=== PATIENT | female | born 1955 | race Caucasian/White ===

== ENCOUNTER 2020-11-16 20:51 | Emergency (ER) | payer OTHER, MEDICARE ==
--- OUTSIDE RECORDS SUMMARY | 2020-11-16 20:55 | XMS REPORT | Continuity of Care Document ---
:1955 Author Organization [facility] t Address [address] [place] [address] Care Team Providers Name Role Phone MANJU SCHROEDER Primary Care Physician Unavailable Adan Cohen MD Attending Clinician Eliecer Sanches MD Attending Clinician ELIECER SANCHES Attending Clinician Unavailable JOSE ROSADO Attending Clinician Unavailable Veronika Sage NP Attending Clinician Alonzo CAVAZOS S Attending Clinician Veronika SAGE Attending Clinician Unavailable Venkatesh DIAZ Attending Clinician Unavailable PERRY Attending Clinician Unavailable Toby Amador Attending Clinician JUAN JOSÉ SANCHES Attending Clinician Unavailable OFELIA PEARL Attending Clinician Unavailable ALEXANDRE Attending Clinician Unavailable Jewel Attending Clinician JUAN JOSÉ SANCHES Admitting Clinician Unavailable ALEXANDRE Admitting Clinician Unavailable Payers Payer Name Policy Type Policy Effective Date Expiration Date Sour ce Number MEDICAREMEDICARE PART [id number] 2019 MD Duran Carranza AND 00:00:00 [id number] 2018- [phone] [id number] 2020 MD Garzon OF RETIRED 00:00:00 PERSONSAARP-SECONDARY [id number] 0-PresentMedigap Problems Condition Condition Condition Status Onset Resolution Last Treating Co mments Source Name Details Category Date Date Treatment Clinician Date Hyperglyce Hyperglyce Disease Active M D wilton wilton 8-21 [facility] 00:00: n 00 LT THUMB Diagnosis Active 2018-11-29 M emoria LIGAMENT 4-04 14:40:00 l LT THUMB 08:00: Umberto n LIGAMENT 00 Active 11/11/2018 [facility] [place] 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 's 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 's thumb ity of of left of left [place] hand, hand, Physici subsequent subsequent an s encounter encounter Allergies, Adverse Reactions, Alerts Allergy Allergy Status Severity Reaction(s) Onset Inactive Treating Comm ents Source Name Type Date Date Clinician codeine DA Active MO [facility] codeine DA Active U 2006-08 [facility] 09[facility] CODEINE DA Active U 2006-08 [facility] 09[facility]06 [facility] d [facility] No Known DA Active U 2006-08 [facility] Contrast 09-06 [place] Allergie 00:00: d s 00 [facility] Center No Known DA Active U 2006-08 [facility] Food 09-06 [facility] Allergie 00:00: d s 00 [facility] No Known DA Active U 2006-08 [facility] Other 09-06 [facility] Allergie 00:00: d s 00 [facility] codeine codeine Active Memoria l [facility] Codeine Drug Active Other (See GI Upset [facility] Comments) [facility] Family History Family Member Diagnosis Comments Start Date Stop Date Source Maternal grandfather -Endocrine (Thyroid, MD Garzon Pituitary, Adrenal) Maternal grandmother -Gynecology (Ovary, MD Garzon Endometrial, Cervix, Vagina) Natural mother -Brain cancer MD Torsten bynum Natural mother -Breast cancer Natural sister -Breast cancer Cousin -Breast cancer MD Uriel wilson Social History Social Habit Start Date Stop Date Quantity Comments Source Sex Assigned At [facility] Tobacco use and 2020-10-01 2020-10-01 Never used MD Altamirano on exposure 00:00:00 00:00:00 Alcohol intake 2020-10-01 2020-10-01 Current MD Uriel wilson 00:00:00 00:00:00 non-drinker of alcohol (finding) Smoking Status Start Date Stop Date Source Never smoker MD Garzon Medications Ordered Filled Start Stop Current Ordering Indication Dosage Frequency Signature Comments Components Source Medication Medication Date Date Medication? Clinician (SIG) Name Name atorvastati 2020- No 1{tbl} Take 1 M D n (LIPITOR) 10-01 tablet by An derso 20 mg 20:03: 00:00 mouth n tablet 19 :00 daily. rosuvastati 2019-08 Yes 1{tbl} Take 1 MD n (CRESTOR) 2-17 tablet by And erso 10 mg 00:00: mouth n tablet 00 daily. SYNTHROID Yes Hypothyroid TAKE 1 MD 100 mcg 6-30 ism, not TABLET BY And erso tablet 00:00: otherwise MOUTH n 00 specified EVERY DAY escitalopra Yes Mood 10mg Take 1 MD m (LEXAPRO) 6-30 disorder, tablet (10 Anderso 10 mg 00:00: not mg) by n tablet 00 otherwise mouth specified daily. escitalopra 2019- No 1{tbl} Take 1 M D m (LEXAPRO) 1-27 06-30 tablet by An derso 10 mg 00:00: 00:00 mouth n tablet 00 :00 daily. SYNTHROID 2019- No TAKE 1 MD 100 mcg 2-20 06-30 TABLET BY Adarsh o tablet 00:00: 00:00 MOUTH n 00 :00 EVERY DAY levothyroxi Yes 100ug Take [address] [facility] 9-05 mcg by [facility] - (SYNTHROID, 12:31: mouth Medic al LEVOTHROID) 10 Every Center 100 MCG morning on tablet an empty stomach. atorvastati Yes 20mg QD Take [address] [facility] (LIPITOR) 905 by mouth Luke s - 20 MG 12:31: every Medical tablet 10 morning . Center TRASTUZUMAB Yes Inject [facility] (HERCEPTIN 04-14 intravenou [facility] - IV) 12:31: sly once Medical 10 every 3 Center weeks. Naloxone No Notes: Memoria - Same as l 14:29: Narcan [facility]vin 00 Flumazenil No Notes: Memor ia 17 (Same as: l 14:29: Romazicon) 00 Lidocaine No Notes: Memori a Hydrochlori 04-26 (Same as: l de 10 MG/ML 14:00: Xylocaine) [place] Injectable 00 Solution Levothyroxi Yes 75 Memori a ne Sodium - microgram l 0.075 MG 13:34: = 1 tab, Heide nn Oral Tablet 00 PO, Daily, [Synthroid] # 30 tab, 0 Refill(s) Sodium No 1,000 mL, Memori a Chloride 04-26 Rate: 25 l 0.154 13:33: ml/hr, [facility]vin MEQ/ML 00 Infuse Injectable over: 40 Solution hr, Route: IV, Dosing Weight 61.364 kg, Total Volume: 1,000, Start date: 04/26/14 8:33:00, Duration: 30 day, Stop date: 05/26/14 8:32:00 Synthroid Synthroid Yes Unive rs TABS TABS [facility] [place] [facility] Lipitor Lipitor Yes [facility] TABS TABS [facility] [place] [facility] Immunizations Ordered Immunization Filled Immunization Date Status Commen ts Source Name Name Influenza, 2017-04-10 Completed MD Garzon Unspecified 00:00:00 Influenza, 2014-06-06 Completed MD Garzon Unspecified 00:00:00 Tdap 2004-08-10 Completed MD Garzon 00:00:00 Vital Signs Vital Name Observation Time Observation Value Comments Source WEIGHT 2020-10-01 12:52:00 64.7 kg WEIGHT 2020-10-01 12:52:00 64.7 kg WEIGHT 2020-03-30 10:13:00 61.1 kg WEIGHT 2020-03-30 10:13:00 61.1 kg Systolic blood 2020-10-01 18:55:30 141 mm[Hg] pressure Diastolic blood 2020-10-01 18:55:30 87 mm[Hg] MD Marbella alcantarason pressure Heart rate 2020-10-01 18:55:30 62 /min MD Michael kennedy Body temperature 2020-10-01 18:55:30 36.61 Tiffany MD Tere luciorson Respiratory rate 2020-10-01 18:55:30 18 /min MD Tere lizarraga Oxygen saturation in 2020-10-01 18:55:30 98 /min MD Garzon Arterial blood by Pulse oximetry Body weight 2020-10-01 18:52:00 64.7 kg MD Rodriguez son BMI 2020-10-01 18:52:00 24.65 kg/m2 MD Michael kennedy Systolic (mm Hg) 2014-04-26 13:38:00 Fili Charles Diastolic (mm Hg) 2014-04-26 13:38:00 Mem orial [place] Respitory Rate 2014-04-26 13:38:00 Smitha Shrestha BMI Calculated 2014-04-25 16:06:00 Smitha Shrestha Height 2014-04-25 16:06:00 [facility] 2014-04-25 16:06:00 [facility] Procedures Procedure Date / Time Performing Clinician Source Performed COMPLETE BLOOD COUNT W/ 2020-10-01 17:45:00 Jose Rosado MD nderson DIFFERENTIAL COMPREHENSIVE METABOLIC 2020-10-01 17:45:00 Jose Rosado MD nderavindraon PANEL Results CBC 2020-10-01 17:45:00 Jose Rosado MD MANUAL DIFFERENTIAL 2020-10-01 17:45:00 Jose Rosado MD [facility] GLUCOSE LEVEL 2020-10-01 17:45:00 Jose Rosado MD BLOOD UREA NITROGEN 2020-10-01 17:45:00 Jose Rosado MD [facility] ELECTROLYTE PANEL 2020-10-01 17:45:00 [facility] CREATININE 2020-10-01 17:45:00 Jose Rosado MD .GLOMERULAR FILTRATION 2020-10-01 17:45:00 Jose Rosado MDson RATE CALCIUM LEVEL TOTAL 2020-10-01 17:45:00 Jose Rosado MD [facility] ALBUMIN LEVEL 2020-10-01 17:45:00 Jose Rosado MD ALKALINE PHOSPHATASE 2020-10-01 17:45:00 Jose Rosado MD Torsten rson ALANINE AMINOTRANSFERASE 2020-10-01 17:45:00 Jose Rosado MD ASPARTATE AMINOTRANSFERASE 2020-10-01 17:45:00 Jose Rosado TOTAL PROTEIN 2020-10-01 17:45:00 Jose Rosado MD FRACTIONATED BILIRUBIN 2020-10-01 17:45:00 Jose Rosado MD COMPLETE BLOOD COUNT W/ 2020-03-30 14:11:00 Eliecer Sanches MDon DIFFERENTIAL COMPREHENSIVE METABOLIC 2020-03-30 14:11:00 Eliecer Sanches MDon PANEL LACTATE DEHYDROGENASE 2020-03-30 14:11:00 Eliecer Sanches MD And erson MAGNESIUM LEVEL 2020-03-30 14:11:00 Eliecer Sanches MD PHOSPHORUS LEVEL 2020-03-30 14:11:00 Eliecer Sanches MD URIC ACID 2020-03-30 14:11:00 Eliecer Sanches MD Results CBC 2020-03-30 14:11:00 Eliecer Sanches MD MANUAL DIFFERENTIAL 2020-03-30 14:11:00 Eliecer Sanches MD Michael kennedy GLUCOSE LEVEL 2020-03-30 14:11:00 Eliecer Sanches MD BLOOD UREA NITROGEN 2020-03-30 14:11:00 Eliecer Sanches MD Michael kennedy ELECTROLYTE PANEL 2020-03-30 14:11:00 Eliecer Sanches MD Uriel n SERUM CREATININE 2020-03-30 14:11:00 Eliecer Sanches MD .GLOMERULAR FILTRATION 2020-03-30 14:11:00 Eliecer Sanches MD RATE CALCIUM LEVEL TOTAL 2020-03-30 14:11:00 Eliecer Sanches MD Michael kennedy ALBUMIN LEVEL 2020-03-30 14:11:00 Eliecer Sanches MD ALKALINE PHOSPHATASE 2020-03-30 14:11:00 Eliecer Sanches MD Torsten rson ALANINE AMINOTRANSFERASE 2020-03-30 14:11:00 Eliecer Sanches MD ASPARTATE AMINOTRANSFERASE 2020-03-30 14:11:00 Eliecer Sanches TOTAL PROTEIN 2020-03-30 14:11:00 Eliecer Sanches MD FRACTIONATED BILIRUBIN 2020-03-30 14:11:00 Eliecer Sanches MD Post Op Promis 29 Survey 2018-11-12 00:00:00 [facility] Hand wo contrast [id number] 2018-07-20 00:00:00 Un iversity [facility] History of [facility] [place] [facility] History of Wrist Surgery Univers ity [facility] History of Mastectomy [facility] Physicians Plan of Care Planned Activity Planned Date Details Comments Source Future Scheduled 2020-04-10 INFLUENZA VACCINE (#1) [facility] - Test 00:00:00 [code = INFLUENZA Medical Ce nter VACCINE (#1)] Future Scheduled 2019 PNEUMOCOCCAL 65+ YRS [facility] - Test 00:00:00 (1 of 1 - Medical Center [id number] PCV13) [code = PNEUMOCOCCAL 65+ YRS (1 of 1 - [id number] PCV13)] Future Scheduled [address] [facility] - Test 00:00:00 (procedure) [code = Medical Center 62927173] Future Scheduled [address] [facility] - Test 00:00:00 malignant neoplasm of Medica l Center cervix (procedure) [code = 483673613] Future Scheduled [address] [facility] - Test 00:00:00 malignant neoplasm of [facility] breast (procedure) [code = 422958048] Future Scheduled [address] [facility] - Test 00:00:00 malignant neoplasm of [facility] colon (procedure) [code = 651190074] Encounters Start End Encounter Admission Attending Care Care Encounter Source Date/Time Date/Time Type Type Clinicians Facility Department ID 2020-10-01 2020-10-01 Outpatient JAIME SANCHES NITA MDA [id number] 11:48:24 13:40:27 ELIECER wilson 2020-10-01 2020-10-01 Outpatient JAIME ROSADO NITA MDA [id number] 11:39:58 11:42:38 JOSE wilson 2020-03-30 2020-03-30 Outpatient JAIME SAGE NITA MDA [id number] 10:12:09 11:00:16 ERICA wilson 2020-03-30 2020-03-30 Outpatient JAIME SANCHESNITA MDA [id number] 08:49:34 09:07:24 ELIECER wilson 2019-01-05 2019-01-05 Appointmen BRIEN AMADOR UTP [id number] Univers 11:10:00 11:10:00 t; LUIS MIGUEL AMADOR Orthopedic Raine M.D. Surgery Radha Titus [facility] [place] [facility] 2018-11-29 2018-12-28 Outpatient Perry [id number] 13:00:00 23:59:00 Luis Miguel [id number] Toby [id number] 2018-11-19 2018-11-19 Appointmen BRIEN AMADOR UTP [id number] Univers 09:30:00 09:30:00 t; LUIS MIGUEL AMADOR Orthopedic Raine M.D. Surgery - Radha Titus [facility] [place] [facility] 2018-11-04 2018-11-04 Appointmen BRIEN AMADOR UTP [id number] Univers 08:00:00 08:00:00 t; LUIS MIGUEL AMADOR it y of MATTHEW, M.D. [place] M.D. Physici ans 2018-10-22 2018-10-22 Appointmen PERRY, BRIEN UTP [id number] Univers 09:00:00 09:00:00 t; LUIS MIGUEL AMADOR, Orthopedic itCaitie M.D. Surgery - [facility] [place] [facility] [place] [facility] 2018-08-27 2018-08-27 Appointmen BRIEN AMADOR UTP [id number] Univers 09:30:00 09:30:00 t; LUIS MIGUEL AMADOR Orthopedic itCaitie M.D. Surgery - [facility] [place] [facility] [place] [facility] 2018-07-30 2018-07-30 Appointmen BRIEN AMADOR UTP [id number] Univers 08:45:00 08:45:00 t; LUIS MIGUEL AMADOR it y of [place], M.D. [facility] [place] [facility] 2018-07-20 2018-07-20 Appointmen BRIEN AMADOR UTP [id number] Univers 09:50:00 09:50:00 t; LUIS MIGUEL AMADOR it y of [place], M.D. [facility] [place] [facility] ans 2014-04-26 2014-04-26 Outpatient [facility] [id number] 08:14:00 11:20:00 Udayini 00 Results Test Description Test Time Test Comments Results Result [facility] e Comments - XR 2020-04-30 FAX: SACRUM/COCCYX 2 + 07:49:00 Renetta Fernández MD V [phone] [place]: St: DEP Name: JULIANA BLACKWOOD CECILKARISSAAlbina [facility] : 1955 Age/S: 64/F [address] Unit #: [id number] Loc: [place] [address] Phys: Renetta Fernández MD Acct: [id number] Dis Date: Status: DEP ER PHONE #: [phone] Exam Date: 04/14/20201448 FAX #: [phone] Reason: fall Report Has Been Amended EXAMS: CPT CODE: [id number] XR SACRUM/COCCYX 2 + V 17599 Addendum - 04/30/2020 SIGNED 04/30/2020 ADDENDUM: [id number] [email or web address]/[id number] Addendum: HISTORY: Fall, pain at 0797 Reported and signed by: Kam Boswell MD Transcribed: 04/30/2020 (8124) [email or web address] Report EXAM: - XR SACRUM/COCCYX 2 + V HISTORY: fall COMPARISON: None available time of interpretation. FINDINGS: Frontal, oblique, and lateral views of the sacrum and coccyx are provided. No acute fracture or malalignment. The sacroiliac joints demonstrate tiny osteophytes at the anterior inferior aspects. No incidental soft tissue findings. IMPRESSION: No acute fracture. at 1518 Reported and signed by: Kam Boswell MD CC: Renetta Fernández MD Technologist: Adelita Estes Date/Time/By: 04/14/2020 (2778) : By: [email or web address] PAGE 1 Signed Report FAX: Renetta Fernández MD [phone] [place]: St: DEP Name: JULIANA BLACKWOOD [facility] : 1955 Age/S: 64/F [address] Unit #: [id number] Loc: [place] [address] Phys: Renetta Fernández MD Acct: [id number] Dis Date: Status: DEP ER PHONE #: [phone] Exam Date: 04/14/2020 1449 FAX #: [phone] Reason: fall Report Has Been Amended EXAMS: CPT CODE: [id number] XR SACRUM/COCCYX 2 + V 25081 <Continued> Orig Print D/T: S: 04/14/2020 (1528) PAGE 2 Signed Report - XR CHEST 1 V 2020-04-30 FAX: 07:48:00 Renetta Fernández MD [phone] [place]: St: DEP Name: JULIANA BLACKWOOD [facility] : 1955 Age/S: 64/F [address] Unit #: [id number] Loc: [place] [address] Phys: Renetta Fernández MD Acct: [id number] Dis Date: Status: DEP ER PHONE #: [phone] Exam Date: 04/14/2020 1445 FAX #: [phone] Reason: fall Report Has Been Amended EXAMS: CPT CODE: [id number] XR CHEST 1 V 68725 Addendum - 04/30/2020 SIGNED 04/30/2020 ADDENDUM: [id number] RAD/CXR1 Addendum: HISTORY: Fall, pain at 0771 Reported and signed by: Kam Boswell MD Transcribed: 04/30/2020 (1673) [email or web address] Report EXAM: - XR CHEST 1 V LOCATION: C3 HISTORY: fall COMPARISON: None available time of interpretation. FINDINGS: Single view of the chest. No indwelling lines or tubes. No pneumothorax. The lungs are clear without significant effusions. The mediastinal contours are unremarkable/unchanged . No acute osseous findings are present. IMPRESSION: No acute cardiopulmonary abnormality. at 7853 Reported and signed by: Kam Boswell MD PAGE 1 Signed Report (CONTINUED) FAX: Renetta Fernández MD [phone] [facility] [place]: St: DEP Name: SATISHJULIANA PRANAYAlbina [facility] : 1955 Age/S: 64/F [address] Unit #: [id number] Loc: [place] [address] Phys: Renetta Fernández MD Acct: [id number] Dis Date: Status: [facility] ER PHONE #: [phone] Exam Date: 04/14/2020 1449 FAX #: [phone] Reason: fall Report Has Been Amended EXAMS: CPT CODE: [id number] XR CHEST 1 V 39876 <Continued> CC: Renetta Fernández MD Technologist: Adelita Estes Date/Time/By: 04/14/2020 (1506) : By: [email or web address] PAGE 2 Signed Report FAX: Renetta Fernández MD [phone] [facility] [place]: [facility]: DEP Name: JULIANA BLACKWOOD [facility] : 1955 Age/S: 64/F [address] Unit #: [id number] Loc: [place] [address] Phys: Renetta Fernández MD Acct: [id number] Dis Date: Status: [facility] ER PHONE #: [phone] Exam Date: 04/14/2020 1449 FAX #: [phone] Reason: fall Report Has Been Amended EXAMS: CPT CODE: [id number] XR CHEST 1 V 77949 <Continued> Orig Print D/T: S: 04/14/2020 (3012) PAGE 3 Signed Report - XR 2020-04-14 FAX: SACRUM/COCCYX 2 + 15:18:00 Renetta Fernández MD V [phone] [place]: St: REG Name: JULIANA BLACKWOOD [facility] : 1955 Age/S: 64/F [address] Unit #: [id number] Loc: [place] [address] Phys: Renetta Fernández MD Acct: [id number] Dis Date: Status: REG ER PHONE #: [phone] Exam Date: 04/14/2020 1449 FAX #: [phone] Reason: fall EXAMS: CPT CODE: [id number] XR SACRUM/COCCYX 2 + V 29232 EXAM: - XR SACRUM/COCCYX 2 + V HISTORY: fall COMPARISON: None available time of interpretation. FINDINGS: Frontal, oblique, and lateral views of the sacrum and coccyx are provided. No acute fracture or malalignment. The sacroiliac joints demonstrate tiny osteophytes at the anterior inferior aspects. No incidental soft tissue findings. IMPRESSION: No acute fracture. at 1518 Reported and signed by: Kam Boswell MD CC: Renetta Fernández MD Technologist: Adelita Estes Date/Time/By: 04/14/2020 (0632) : By: [email or web address] PAGE 1 Signed Report FAX: Renetta Fernández MD [phone] [facility] [place]: St: REG Name: JULIANA BLACKWOOD [facility] : 1955 Age/S: 64/F [address] Unit #: [id number] Loc: [place] [address] Phys: Renetta Fernández MD Acct: [id number] Dis Date: Status: REG ER PHONE #: [phone] Exam Date: 04/14/2020 1449 FAX #: [phone] Reason: fall EXAMS: CPT CODE: [id number] XR SACRUM/COCCYX 2 + V 28218 <Continued> Orig Print D/T: S: 04/14/2020 (0827) PAGE 2 Signed Report - XR CHEST 1 V 2020-04-14 FAX: 15:06:00 Renetta Fernández MD [phone] [facility]: St: REG Name: JULIANA BLACKWOOD [facility] : 1955 Age/S: 64/F [address] Unit #: [id number] Loc: [place] [address] Phys: Renetta Fernández MD Acct: [id number] Dis Date: Status: REG ER PHONE #: [phone] Exam Date: 04/14/2020 144 FAX #: [phone] Reason: fall EXAMS: CPT CODE: [id number] XR CHEST 1 V 83023 EXAM: - XR CHEST 1 V LOCATION: C3 HISTORY: fall COMPARISON: None available time of interpretation. FINDINGS: Single view of the chest. No indwelling lines or tubes. No pneumothorax. The lungs are clear without significant effusions. The mediastinal contours are unremarkable/unchanged . No acute osseous findings are present. IMPRESSION: No acute cardiopulmonary abnormality. at 150 Reported and signed by: Kam Boswell MD CC: Renetta Fernández MD Technologist: Adelita Estes Date/Time/By: 04/14/2020 (1488) : By: [email or web address] PAGE 1 Signed Report FAX: Renetta Fernández MD [phone] [facility] [place]: St: REG Name: JULIANA BLACKWOOD [facility] : 1955 Age/S: 64/F [address] Unit #: [id number] Loc: [place] [address] Phys: Renetta Fernández MD Acct: [id number] Dis Date: Status: REG ER PHONE #: [phone] Exam Date: 04/14/2020 1449 FAX #: [phone] Reason: fall EXAMS: CPT CODE: [id number] XR CHEST 1 V 17850 <Continued> Orig Print D/T: S: 04/14/2020 (0194) PAGE 2 Signed Report - CT C-SPINE W/O 2020-04-14 FAX: CONT 14:27:00 Renetta Fernández MD [phone] [facility] [place]: St: REG Name: JULIANA BLACKWOOD [facility] : 1955 Age/S: 64/F [address] Unit: [id number] Loc: [place] [address] Phys: Renetta Fernández MD Acct: [id number] Dis Date: Status: REG ER PHONE #: [phone] Exam Date: 04/14/2020 1410 FAX #: [phone] Reason: fall EXAMS: CPT CODE: [id number] CT C-SPINE W/O CONT 494[address] Location B2 NON-CONTRAST CT BRAIN NONCONTRAST CT CERVICAL SPINE History: Fall. Trauma COMPARISON: None available TECHNIQUE : Serial axial CT of the brain obtained without the use of intravenous contrast in brain and bone window settings. Axial CT of the cervical spine provided in soft tissue and bone windows with coronal and sagittal reconstruction. One or more of the following dose reduction techniques were used: Automated exposure control, adjustment of the mA or KV according to patient size, use of Iterative reconstruction technique. DLP 1332.82 mGy-cm FINDINGS: Brain: There is no evidence of acute cerebrovascular injury, mass effect or midline shift. No evidence of subarachnoid hemorrhage, intracerebral hematoma, or extraaxial fluid collections. Osseous structures are unremarkable. The orbits appear normal. The visible paranasal sinuses and mastoid air spaces are clear. T-spine: Alignment is normal. Vertebral body height is maintained. Mild disc space narrowing with small anterior osteophytes throughout the C-spine. Mild uncovertebral spurring at C4-C5 results in mild foraminal encroachments. There are bony hypertrophic changes along the anterior C1 around the dens. The craniocervical junction and cervicothoracic junctions are intact. The prevertebral soft tissues show no focal abnormality. IMPRESSION: 1. No evidence of acute intracranial process. 2. No evidence of acute fracture or subluxation, C-spine. Mild chronic degenerative changes. PAGE 1 Signed Report (CONTINUED) FAX: Renetta Fernández MD [phone] [facility] [place]: St: REG Name: JULIANA BLACKWOOD [facility] : 1955 Age/S: 64/F [address] Unit: [id number] Loc: [place] [address] Phys: Renetta Fernández MD Acct: [id number] Dis Date: Status: REG ER PHONE #: [phone] Exam Date: 04/14/2020 1410 FAX #: [phone] Reason: fall EXAMS: CPT CODE: [id number] CT C-SPINE W/O CONT 41868 <Continued> at 1427 Reported and signed by: Gail Bone MD CC: Renetta Fernández MD Technologist: Lela Lenz Dt/Tm: 04/14/2020 (1427) [email or web address] Orig Print D/T: S: 04/14/2020 (1430 PAGE 2 Signed Report - CT HEAD/BRAIN 2020-04-14 FAX: W/O CONT 14:27:00 Renetta Fernández MD [phone] [place]: St: REG Name: JULIANA BLACKWOOD [facility] [facility] : 1955 Age/S: 64/F [address] Unit: [id number] Loc: [place] [address] Phys: Renetta Fernández MD Acct: [id number] Dis Date: Status: REG ER PHONE #: [phone] Exam Date: 04/14/2020 1410 FAX #: [phone] Reason: fall EXAMS: CPT CODE: [id number] CT HEAD/BRAIN W/O CONT 71974 Location B2 NON-CONTRAST CT BRAIN NONCONTRAST CT CERVICAL SPINE History: Fall. Trauma COMPARISON: None available TECHNIQUE : Serial axial CT of the brain obtained without the use of intravenous contrast in brain and bone window settings. Axial CT of the cervical spine provided in soft tissue and bone windows with coronal and sagittal reconstruction. One or more of the following dose reduction techniques were used: Automated exposure control, adjustment of the mA or KV according to patient size, use of Iterative reconstruction technique. DLP 1332.82 mGy-cm FINDINGS: Brain: There is no evidence of acute cerebrovascular injury, mass effect or midline shift. No evidence of subarachnoid hemorrhage, intracerebral hematoma, or extraaxial fluid collections. Osseous structures are unremarkable. The orbits appear normal. The visible paranasal sinuses and mastoid air spaces are clear. T-spine: Alignment is normal. Vertebral body height is maintained. Mild disc space narrowing with small anterior osteophytes throughout the C-spine. Mild uncovertebral spurring at C4-C5 results in mild foraminal encroachments. There are bony hypertrophic changes along the anterior C1 around the dens. The craniocervical junction and cervicothoracic junctions are intact. The prevertebral soft tissues show no focal abnormality. IMPRESSION: 1. No evidence of acute intracranial process. 2. No evidence of acute fracture or subluxation, C-spine. Mild chronic degenerative changes. PAGE 1 Signed Report (CONTINUED) FAX: Renetta Fernández MD [phone] [place]: St: REG Name: JULIANA [facility]OD [facility] : 1955 Age/S: 64/F [address] Unit: [id number] Loc: [place] [address] Phys: Renetta Fernández MD Acct: [id number] Dis Date: Status: REG ER PHONE #: [phone] Exam Date: 04/14/2020 1410 FAX #: [phone] Reason: fall EXAMS: CPT CODE: [id number] CT HEAD/BRAIN W/O CONT [id number] <Continued> at 1427 Reported and signed by: Gail Bone MD CC: Renetta Fernández MD Technologist: Lela Hernandez Trnscrd Dt/Tm: 04/14/2020 (4347) [email or web address] Orig Print D/T: S: 04/14/2020 (7450 PAGE 2 Signed Report MM, U/S GUIDANCE, 2019-01-26 Reason for MRN#: BREAST, LEFT 13:28:00 Exam:->LT BREAST [id number] - MASS MM, U/S GUIDANCE, BREAST, LEFTASPIRATION: 01/26/2019CLINICAL: Cyst aspiration of the left breast. PATIENT CONSENT: The procedure, risks, benefits and alternatives were discussed with the patient. Informed consent was obtained. A time-out was performed. PROCEDURE DESCRIPTION: Following universal protocol, patient and site verification was performed with a "time out" prior to the procedure. Preliminary ultrasound of the left breast with special attention to the area of sonographic concern, confirms the presence of a 3 mm cyst at the 2 o'clock location, 10 cm from the nipple. Informed consent was obtained. The patient was positioned in the supine oblique position. The skin was cleansed, and the surgical site was marked. 2% Lidocaine was used for local anesthesia. Using sonographic guidance, an 16 gauge needle was advanced into the mass and less than 1 cc of clear yellow fluid was aspirated from the cyst which collapsed during aspiration. Fluid was discarded. Post aspiration images document resolution of the cyst. The patient tolerated the procedure well and left the department in good condition. I attest that I personally performed the entire procedure and reviewed all of the images. Comparison is made to exam dated: 01/11/2019 ultrasound - [facility]. IMPRESSION: ASPIRATION Successful left breast cyst aspiration. An ultrasound within 6 months is recommended as post biopsy follow-up. These findings and recommendations were discussed with the patient. Kristy Cancino M.D. as/:01/26/2019 13:28:33 Finished Carpet Inspector: Annabelle Guerrero [facility] [address] , BREAST, 2019-01-11 Diagnostic MRN#: AXILLA, AUNG 09:23:00 workup per [id number] - BASIN, LIMITED radiologist?->Ye MMUS, BREAST, AXILLA, s Reason for AUNG BASIN, Exam:->Unspecifi LIMITEDULTRASOUND OF ed lump in the LEFT BREAST AND LEFT left breast, AXILLA: 01/11/2019No upper outer prior ultrasound exams quadrant were available for comparison. Clinical History: History of right breast cancer; status post bilateral mastectomy with reconstruction; presents with a new left palpable concern for 2 months. Color flow and real-time ultrasound of the left breast and axilla were performed. There is a 3 mm oval mass with a circumscribed margin in the left reconstructed breast at 2 o'clock approximately 10 cm from the nipple. This oval mass is anechoic. This correlates as palpated. Color flow imaging demonstrates that there is no vascularity present. There are no abnormal appearing axilla lymph nodes. IMPRESSION: SUSPICIOUS OF MALIGNANCY - FOLLOW-UP RECOMMENDED The 3 mm palpable oval mass in the left reconstructed breast likely represents fat necrosis and is at a low suspicion for malignancy. An FNA with possible core biopsy is recommended. These findings and recommendations were discussed with the patient.Kristy Cancino M.D. as/:01/11/2019 09:23:33 Biopsy Required BiRad 4-5 Ultrasound BI-RADS: 4a Suspicious abnormality - low suspicion for malignancy ÉN, REMOVAL OF 2018-04-14 Reason for FINAL REPORT PATIENT TUNNELED CVC 14:12:00 Exam:->RIGHT ID: [id number] Right W/PORT BREAST CA Chest Port-A-Cath removal. History: Right-sided breast cancer, completed chemotherapy Modality: None. Sedation: None. Fast Food Sales Assistant: Wesley Perry MD. Environmental Advisor: None. Approach: Left anterior chest. Estimated blood loss: < 5 cc. Specimen: None. Technique: The procedure including risks and benefits were explained to the patient, who expressed understanding. After informed written consent was obtained, the patient's Left anterior chest region was prepped and draped in the usual sterile fashion. The skin was anesthetized with 1% lidocaine with epinephrine. Incision was made over the previous incision line. The port was removed with blunt dissection. The pocket was flushed with gentamicin. The skin was closed with running Monocryl and Dermabond. The patient tolerated the procedure well and left the department in the same condition. Postprocedure chest radiograph demonstrates no retained foreign body. Impression: Successful, uncomplicated removal of a Left Port-A-Cath. Signed: Wesley Perry MDReport Verified Date/Time: 04/14/2018 14:12:26 Reading Location: [facility] Radiology Reading Room HROMBIN TIME/INR 2018-04-14 11:33:00 Test Item Value Reference Range Interpretation Comme nts PROTIME (BEAKER) (test code = 759) 13.1 seconds 11.8-14.4 INR (BEAKER) (test code = 370) 0.9 1.2-1.5 L RECOMMENDED COUMADIN/WARFARIN INR THERAPY RANGESSTANDARD DOSE: 2.0 - 3.0 Includes: PROPHYLAXIS forvenous thrombosis, systemic embolization; TREATMENT for venous thrombosis and/or pulmonary embolus.HIGH RISK: Target INR is 2.5-3.5 for patients with mechanical heart valves.PLATELET [id number] 11:29:00 Test Item Value Reference Range Interpretation Comments PLATELET COUNT (BEAKER) (test 246 K/CU MM 150-430 code = 756) BASIC METABOLIC [id number] 11:54:00 Test Item Value Reference Range Interpretation Comments SODIUM (BEAKER) 141 meq/L 135-148 (test code = 381) POTASSIUM (BEAKER) 4.5 meq/L 3.5-5.5 (test code = 379) CHLORIDE (BEAKER) 105 meq/L 98-106 (test code = 382) CO2 (BEAKER) (test 29 meq/L 20-31 code = 355) BLOOD UREA NITROGEN 18 mg/dL 10-26 (BEAKER) (test code = 354) CREATININE (BEAKER) 0.83 mg/dL 0.50-1.20 (test code = 358) GLUCOSE RANDOM 95 mg/dL 70-110 (BEAKER) (test code = 652) CALCIUM (BEAKER) 9.2 mg/dL 8.5-10.5 (test code = 697) EGFR (BEAKER) (test 69 mL/min/1.73 ESTIMA ANDREA GFR IS code = 1092) sq m NOT ACCURATE CREATININE CLEARANCE IN PREDICTING GLOMERULAR FILTRATION RATE . ESTIMATED GFR I S NOT APPLICABLE FOR DIALYSIS PATIEN TS. CBC W/PLT COUNT & AUTO [id number] 11:28:00 Test Item Value Reference Range Interpretation Comments WHITE BLOOD CELL COUNT (BEAKER) 6.0 K/ L 4.0-10.0 (test code = 775) RED BLOOD CELL COUNT (BEAKER) 4.10 M/ L 4.00-5.00 (test code = 761) HEMOGLOBIN (BEAKER) (test code = 11.6 GM/DL 12.0-15.0 L 410) HEMATOCRIT (BEAKER) (test code = 35.5 % 36.0-45.0 L 411) MEAN CORPUSCULAR VOLUME (BEAKER) 86.5 fL 82.0-99.0 (test code = 753) MEAN CORPUSCULAR HEMOGLOBIN 28.3 pg 27.0-33.0 (BEAKER) (test code = 751) MEAN CORPUSCULAR HEMOGLOBIN CONC 32.7 GM/DL 32.0-36.0 (BEAKER) (test code = 752) RED CELL DISTRIBUTION WIDTH 14.7 % 12.0-15.0 (BEAKER) (test code = 412) PLATELET COUNT (BEAKER) (test 273 K/CU MM 150-430 code = 756) MEAN PLATELET VOLUME (BEAKER) 7.9 fL 6.5-10.5 (test code = 754) NUCLEATED RED BLOOD CELLS 0 /100 WBC 0-0 (BEAKER) (test code = 413) NEUTROPHILS RELATIVE PERCENT 45 % (BEAKER) (test code = 429) LYMPHOCYTES RELATIVE PERCENT 44 % (BEAKER) (test code = 430) MONOCYTES RELATIVE PERCENT 9 % (BEAKER) (test code = 431) EOSINOPHILS RELATIVE PERCENT 2 % (BEAKER) (test code = 432) BASOPHILS RELATIVE PERCENT 1 % (BEAKER) (test code = 437) NEUTROPHILS ABSOLUTE COUNT 2.70 K/ L 1.80-8.00 (BEAKER) (test code = 670) LYMPHOCYTES ABSOLUTE COUNT 2.70 K/ L 1.48-4.50 (BEAKER) (test code = 414) MONOCYTES ABSOLUTE COUNT (BEAKER) 0.50 K/ L 0.00-1.30 (test code = 415) EOSINOPHILS ABSOLUTE COUNT 0.10 K/ L 0.00-0.50 (BEAKER) (test code = 416) BASOPHILS ABSOLUTE COUNT (BEAKER) 0.00 K/ L 0.00-0.20 (test code = 417) ANG, TUNNEL CATH CENTRAL INS W/PORT [id number] 09:20:00Reason for Exam:->rt breast caFINAL REPORT Left internal jugular chest port insertion, 05/04/2017. History: Right breast cancer. Modality: Sonography and fluoroscopy. Sedation: Versed 1 mg and fentanyl 50 mcg given intravenously for conscious sedation. Vital signs were monitored throughout the procedure by a nurse, and remained stable.Physician intra-service time was 30 minutes. Fast Food Sales Assistant: Jackie. Environmental Advisor: None. Approach: Left internal jugular vein Estimated blood loss: < 5 cc. Specimen: None. Fluoroscopy Time: 0.1 min. Dose (Ka,r): 3.1 mGy. Technique: Informed written consent was obtained. Discussion of risks, benefits, and alternatives were made with the patient. The patient expressed understanding and agreed toproceed. All elements maximal sterile barrier technique was utilized for this procedure, including utilization of sterile scrub solution for skin prep, a large sterile sheet to cover the areas of the patient that were not prepped, and hand hygiene, mask, head covering, and sterile gown for performingradiologist and scrub technologist. The skin was anesthetized with 2% lidocaine. Ultrasound evaluation showed a patent and compressible left internal jugular vein, which was punctured under direct real-time ultrasound guidance with a micropuncture needle. An ultrasound image was saved to PACS. A 0.018 inch wire was placed through the needle into the right atrium. A 4 Brune[place] micropuncture sheath was placed. A subcutaneous tunnel and pocket were created in the left anterior chest wall by blunt dissection. The pocket was flushed with antibiotic solution. A AngioDynamics power injectable port wasplaced within the pocket and the catheter brought through the tunnel. A peel-away sheath was placed in the left IJ vein and the catheter was advanced through the sheath, with its distal tip terminating in the cavoatrial junction. The peel-away sheath was removed. The catheter was cut at 26 cm and attached to the port. The port was flushed and aspirated easily following placement. The skin incisionwas closed with 3-0 running subcuticular Monocryl and Steri-Strips. The small jugular incision sitewas closed using Steri-Strips. The patient tolerated the procedure well and left the department in the same condition. Patient received 1 gram of Ancef intravenously pre-procedure. Results: Spot radiograph of the chest demonstrates the new left IJ Port-A-Cath to lie in the expected position with its tip overlying the cavoatrial junction. Impression: Successful, uncomplicated placement of a left internal jugular chest port using sonographic and fluoroscopic guidance and conscious sedation. Signed: Edward Mejia Verified Date/Time: 05/05/2017 09:20:02 Reading Location: [facility] Radiology Reading Room RAD, CHEST, 2 [id number] 16:49:00MDA ptRR 3Reason for exam:->s/p port placementFINAL REPORT CHEST PA AND LATERAL History provided: Port-A-Cath placement Comparison exam: 04/02/2017 Heart size is normal. Lungs are clear and vascularity normal. Port-A-Cath from left jugular approach with catheter tip at the cavoatrial junction in excellent position. IMPRESSION: Clear chest. Port-A-Cath in excellent position. Signed: Aamir Cruz Verified Date/Time:05/04/2017 16:49:05 Reading Location: [facility] Diagnostic Imaging Reading Room - [facility] [place] 1.310.12 HROMBIN TIME/[id number] 13:15:00 Test Item Value Reference Range Interpretation Comments PROTIME (BEAKER) (test code = 12.6 seconds 11.8-14.4 759) INR (BEAKER) (test code = 370) 0.9 1.2-1.5 L RECOMMENDED COUMADIN/WARFARIN INR THERAPY RANGESSTANDARD DOSE: 2.0 - 3.0 Includes: PROPHYLAXIS forvenous thrombosis, systemic embolization; TREATMENT for venous thrombosis and/or pulmonary embolus.HIGH RISK: Target INR is 2.5-3.5 for patients with mechanical heart valves.PLATELET [id number] 13:03:00 Test Item Value Reference Range Interpretation Comments PLATELET COUNT (JENNIFER) (test 269 K/CU MM 150-430 code = 756) TISSUE [id number] 10:15:00Surgical Pathology Report Case: [id number] Authorizing Provider: Manju Schroeder, Collected: 04/02/2017 0908 [facility]ingLocation: [facility] - Perioperative Received: 04/02/2017 0921 Services Pathologist: Aki Frye DO Specimens: A) -Breast, Right, RIGHT BREAST (long stitch lateral, short stitch superior) B) - Lymph Node, [place], Right Axilla, Right Axillary [place] Lymph Node Bx #1 (in vivo 490, ex vivo 564) C) - Lymph Node, [place], Right Axilla, Right Axillary [place] Lymph Node Bx #2 (in vivo 57, ex vivo54) D) - Lymph Node, [place], Right Axilla, Right Axillary [place] Lymph Node Bx #3 (in vivo 39, ex vivo 80) E) - Lymph Node, [place], Right Axilla, Right Axillary [place] Lymph Node Bx #4 (in vivo 44, ex vivo 36) F) - Breast, Left, LEFT BREAST (long stitch lateral, short stitch superior) A. 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 (SEE SYNOPTIC REPORT #1)- ALYSSA HISTOLOGIC SCORE: 8 OF 9 (GRADE 3) (TUBULE FORMATION: 3, NUCLEAR PLEOMORPHISM: 3, MITOSES: 2) - SIZE OF INVASIVE CARCINOMA: 7.2 MM IN GREATEST LINEAR DIMENSION - NO LYMPH-VASCULAR INVASION IDENTIFIED (D2-40(-)/CD31(-)) - DUCTAL CARCINOMA IN SITU (DCIS), HIGH NUCLEAR GRADE, SOLID AND COMEDO TYPES WITH CENTRAL NECROSIS, APOCRINE FEATURES AND ASSOCIATED CALCIFICATIONS - SIZE OF DCIS: APPROXIMATELY 40 MM - SPANS TISSUE SLICES 11 - 14 - PRESENT ON 10 OF 22 SLIDES - MARGIN STATUS: NEGATIVE - INVASIVE CARCINOMA IS 2.8 MM TO ANTERIOR MARGIN AND >10 MM TO REMAINING MARGINS - DCIS IS 5.3 MM TO POSTERIOR MARGIN AND >10 MM TO REMAINING MARGINS - LOBULAR NEOPLASIA (ATYPICAL LOBULAR HYPERPLASIA/LOBULAR CARCINOMA IN SITU) WITH DUCTAL EXTENSION - REMAINING BREAST TISSUE WITH BIOPSY SITE CHANGES AND FIBROCYSTIC CHANGE - BREAST BIOMARKER RESULTS (SEE SYNOPTIC REPORT #2) - ESTROGEN RECEPTOR: NEGATIVE - PROGESTERONE RECEPTOR: NEGATIVE - HER2 IHC: POSITIVE (SCORE 3+) - KI-67: HIGH, 25% - PATHOLOGIC STAGE: pT1b (sn)N0(i-)B. LYMPH NODE, SENTINEL #1, RIGHT AXILLA, EXCISIONAL BIOPSY: - ONE LYMPH NODE, NEGATIVE FOR METASTATIC CARCINOMA (0/1) - AE1/AE3 IS NEGATIVEC. LYMPH NODE, SENTINEL #2, RIGHT AXILLA, EXCISIONAL BIOPSY: - ONE LYMPH NODE, NEGATIVE FOR METASTATIC CARCINOMA (0/1) - AE1/AE3 IS NEGATIVED. LYMPH NODE, SENTINEL #3, RIGHT AXILLA, EXCISIONAL BIOPSY: - TWO LYMPH NODES, NEGATIVE FOR METASTATIC CARCINOMA (0/2) - AE1/AE3 IS NEGATIVEE. LYMPH NODE, SENTINEL #4, RIGHT AXILLA, EXCISIONAL BIOPSY: - ONE LYMPH NODE, NEGATIVE FOR METASTATIC CARCINOMA (0/1) - AE1/AE3 IS NEGATIVEF. BREAST, LEFT, RISK REDUCING SKIN SPARING MASTECTOMY: - LOBULAR NEOPLASIA (ATYPICAL LOBULAR HYPERPLASIA/LOBULAR CARCINOMA IN SITU) WITH DUCTAL EXTENSION - REMAINING BREAST TISSUE WITH FIBROCYSTIC CHANGE (APOCRINE METAPLASIA, STROMAL FIBROSIS, MICROCYSTS) AND COLUMNAR CELL ALTERATION - MICROCALCIFICATIONS ASSOCIATED WITH BENIGN GLANDULAR EPITHELIUM - NEGATIVE FOR INVASIVE CARCINOMA Signing Pathologist Direct Phone Line: [phone] signed by Aki Frye DO on 04/10/2017 at 10:15 AMINVASIVE CARCINOMA OF THE BREAST: Complete Excision (Less Than Total Mastectomy, Including Specimens Designated Biopsy, Lumpectomy, Quadrantectomy, and Partial Mastectomy With or Without Axillary Contents) and Mastectomy (Total, Modified Radical, Radical With or Without Axillary Contents)Radical, Radical With or Without Axillary Contents) (Breast Invasive - All Specimens)CLINICAL Radiologic Finding: Mass or architectural distortion Radiologic Finding: CalcificationsSPECIMEN Procedure: Skin-sparing mastectomy Lymph Node Sampling: [place] lymph node(s) Specimen Laterality: RightTUMOR Primary Tumor Site: Invasive Carcinoma: Lower inner quadrant Specify Clock Position of Tumor Site: 5 o'clock Presence of Invasive Carcinoma: Histologic Type: Invasive mammary carcinoma of no special type (ductal, not otherwise specified) Histologic Grade (Alyssa Histologic Score): Glandular (Acinar) / Tubular Differentiation: Score 3 (< 10% of tumor area forming glandular / tubular structures) Nuclear Pleomorphism: Score 3 (Vesicular nuclei, often with prominent nucleoli, exhibiting marked variation in size and shape, occasionally with very large and bizarre forms) Mitotic Rate: Score 2 (4-7 mitoses per mm2) Overall Grade: Grade 3 (scores of8 or 9) Ductal Carcinoma In Situ (DCIS): DCIS is present Ductal Carcinoma In Situ (DCIS): Negative for extensive intraductal component (EIC) Estimated Size (extent) of DCIS (greatest dimension using gross and microscopic evaluation) is at Least (mm): 40 mm Number of Blocks with DCIS: 10 Number of Blocks Examined: 22 Architectural Patterns: Comedo Architectural Patterns: Solid Nuclear Grade: Grade III (high) Necrosis: Present, central(expansive 'comedo' necrosis) Lobular Carcinoma In Situ (LCIS): Present Tumor Size / Focality: Tumor Size: Size of Largest Invasive Carcinoma: Greatest dimension of largest focus of invasion > 1 mm Greatest Dimension (mm): 7.2 mm Skin: Lymph-Vascular Invasion: Not identified Dermal Lymph-Vascular Invasion: Not identified Microcalcifications: Present in DCIS Treatment Effect: Response to Presurgical (Neoadjuvant) Therapy: No known presurgical therapyMARGINS Invasive Carcinoma: Margins uninvolved by invasive carcinoma Distance from Closest Margin: Distance (specify in mm): 2.8 Closest Uninvolved Margin: AnteriorDuctal Carcinoma In Situ (DCIS): Margins uninvolved by DCIS (DCIS present in specimen) Distance of DCIS from Closest Margin (mm): Distance (specify in mm): 5.3 mm Closest Uninvolved Margin(s): PosteriorLYMPH NODES Regional Lymph Nodes: [place] Node Status: [place] lymphnode biopsy performed Number of [place] Nodes Examined: Specify number: 5 Method of Evaluation of [place] Lymph Node(s): H&E, multiple levels Method of Evaluation of [place] Lymph Node(s): Immunohistochemistry Number of Lymph Node(s) Examined (sentinel and nonsentinel): Specify number: 5STAGE (pTNM) Primary Tumor (Invasive Carcinoma) (pT): pT1b: Tumor > 5 mm but <= 10 mm in greatest dimension Modifier: (sn): Only sentinel node(s) evaluated. If6 or more nodes (sentinel or nonsentinel) are removed, this modifier should not be used. Category (pN): pN0 (i-): No regional lymph node metastases histologically, negative IHCBREAST: Biomarker Reporting Template (Breast Bmk - All Specimens)TEST(S) PERFORMED Test(s) Performed: Estrogen Receptor (ER) Status ER Results: Negative ER Test Control Status: Internal control cells present and stain as expected Test Type (required for U.S.- based laboratories): Food and Drug Administration (FDA) cleared (specify test / vendor): [place] Primary Antibody: SP1 Scoring System: Raad Proportion Score: 0 Intensity Score: 0 Total Raad Score: 0 Test(s) Performed: Progesterone Receptor (PgR) Status PgR Results: Negative PgR Test Control Status: Internal control cells present and stain as expected Test Type (required for U.S.-based laboratories): Food and Drug Administration (FDA) cleared (specify test / vendor): [place] Primary Antibody: 1294 Scoring System: Raad Proportion Score: 0 Intensity Score: 0 Total Raad Score: 0 Test(s) Performed: HER2 by Immunohistochemistry (IHC) HER2 IHC Results: Positive (Score 3+) Percentage of Cells with Uniform Intense Complete Membrane Stainin Test Type (required for U.S.-based laboratories): Food and Drug Administration (FDA) cleared (specify test / vendor): [place] Primary Antibody: 4B5 Test(s) Performed: +Ki-67 Percentage of Positive Nuclei: 25 Primary Antibody: 30-9METHODS Cold Ischemia and Fixation Times: Meet requirements specified in latest version of the ASCO / CAP Guidelines Fixative: Formalin Image Analysis: Not [id number] X 6, 66016 X 5,81347 X 2, 89278 X 4, 92641 x 4, 31728Oxnynwrnsfe carcinoma in situ of right breast. Initial mammogram revealed 3 cm grouped linear heterogeneous calcifications in the right breast at 5:00 middle [id number] from the nipple. No sonographic evidence of malignancy in the right breast or aung basins. Biopsy 02/09/17 revealed ductal carcinoma in situ, high-grade, ER 1-2% positive, OR 5% positive. Single focus suspicious for microinvasion. MRI Revealed at the 5- 6 o'clock position 4cm from the nipple a linear non-mass enhancement measuring 4.5 x 0.6 cm. At least 3 enhancing nodules were noted anterior and posterior to the enhancement. A dominant mass at 5:00 measured 0.7 x 0.7 x 0.8 cm. This is concerning for a more invasive component.A. Right breast; B. Lymph node sentinel, right axilla; C. Right axillary sentinel lymph node #2; D. Right axillary sentinel lymph node #3; E. Right axillary sentinel lymph node #4; F. Left breast; The instrument, paperwork, containers and cassettes all read [id number]. The specimen is received in six containers each labeled with the patient's name (Blackwood) and medical record number. Specimen A: The specimen is received in formalin designated as "right breast (long stitch lateral, short stitch superior)" and consists of a 530 gm right breast skin-sparing mastectomy, 23 cm medial to lateral, 21 cm superior to inferior, and 3 cm anterior to posterior. An ovoid nipple areolar complex is present measuring 4.6 x 3.2 cm and is grossly unremarkable. A short stitch is presenton the nipple areolar complex designating superior and a long stitch designating lateral. The superficial superior margin is inked yellow. The superficial inferior margin is inked blue and the posterior margin is inked black. The specimen is x-rayed for clip detection and there is a single clip identified in the lower inner quadrant at approximately 5:00 position. The specimen is sectioned into sixteen tissue slices from lateral to medial each approximately 1 cm thick. The specimen slices are x-rayed and a single clip is identified in tissue slice 13. Also present are calcifications associated withthe clips in the tissue slices 12 & 14, spanning approximately 3 cm. The breast tissue is predominantly fatty with 90% fat to 10% fibrous tissue. The central aspect of the breast tissue is densely fibrotic with multiple small blue domed cysts. In the tissue slice 13 and 14 is adjacent to biopsy clip is a 1.0 x 0.9 x 0.7 cm of firm aaron white well-circumscribed mass. This is located 2 mm to the anterior/inferior margin. No other discrete masses are either palpated or seen. The specimen is submitted as follows: A1, lateral margin, perpendicular; A2, dense breast tissue and tissue slice 6; A3, dense breast tissue and tissue slice 9; A4, nipple/perpendicular; A5, tissue slice 11, area adjacent to calcifications of tissue slice 12; A6 through 8, full cross section of tissue slice 12, targeting calcification; A9 through 14, tissue slice 13 with areas of calcification with the clip present in between A9 and A10; A15 through 18, full cross section of mass and skin tissue slice 14; A19 and 20, area adjacent to mass in tissue slice 15; A21 and A22, perpendicular sections of medial margin tissue slice16. Date and time collection: 907 on 04/02/17Date and time in formalin: 920 on 04/02/17Date and timeremoved from formalin: 2330 on 04/03/17Specimen B: The specimen is designated "right axillary sentinel lymph node biopsy #1 (in vivo 490, ex vivo 564)" and consists of a 1.5 x 1.2 x 0.7 cm lymph node. No masses are identified grossly. There is some fatty hilar replacement. The specimen was submitted for intraoperative consultation with touch preparations. Please see intraoperative consultation part ofthe report. The specimen is submitted in toto in cassette B1 SLN & B2 SLN. Specimen C: The specimen is designated "right axillary sentinel lymph node biopsy #2 (in vivo 57, ex vivo 54)" and consists of a 0.6 x 0.6 x 0.4 cm lymph node. The specimen was submitted fresh for intraoperative consultation with touch preparations. Please see intraopeorative consultation part of the report. The specimen is submitted in toto in cassette C1 SLN. Specimen D: The specimen is designated "right axillary sentinel lymph node biopsy #3 (in vivo 39, ex vivo 80) and consists of two lymph nodes. The specimen was submitted fresh for intraoperative consultation with touch preparations. Please see intraoperative consultation part of the report. The first lymph node measures 0.3 x 0.3 x 0.2 cm. There are no masses identified grossly. The larger lymph node measures 0.9 x 0.7 x 0.5 cm. No masses are identified grossly. The specimen is entirely submitted as follows: D1 SLN, smaller lymph node; D2 and D3, SLN, larger lymph node. Entirely submitted.Specimen E. Ts is designated "right axillary sentinel lymph node biopsy#4 (in vivo 44, ex vivo 36)" and consists of a 1/5 x 1.6 x 0.7 cm lymph node. The central aspect is replaced with adipose tissue. There is a thin rim of pink-aaron lymphoid tissue. No masses identified. The specimen is submitted in toto in E1, SLN through E3, SLN. ES/plSpecimen F: Received in formalin labeled as "left breast". Received is a 527 gm, 20.0 x 17.7 x 4.8 cm left breast mastectomy. There is an overlying skin ellipse which measures 5.5 cm from lateral to medial and 3.2 cm from superior to inferior. On one side, there is a short suture which is denoted as superior over to one side 90 degrees, is long suture denoted as lateral. The nipple-areolar complex measures 2.2 x 2.0 cm. The nipple itself measures 1.1 cm. The specimen is inked as follows: The superficial superior aspect, blue, the superficial inferior aspect is orange. The chest wall margin is black. Sectioning reveals a yellow-white cut surface, a mixture of yellow adipose tissue and dense white fibrous connective tissue. No discrete masses noted. Sectioning reveals no mass. Code sections: F1, nipple; F2, base of nipple; F3 and 4, upper inner quadrant; F5 and 6, lower inner quadrant; F7 and 8, lower outer quadrant; F9 and 10, upper outer quadrant.The collection time on this specimen is 04/02 at 7:30 a.m Placed in formalin: 04/02 at 10:30 a.m. Time out of formalin will be 04/03 at 2330 hours. JF/pl INTRAOPERATIVE CONSULTATION WITHTOUCH PREPARATIONS: B. LYMPH NODE, SENTINEL #1, RIGHT AXILLA, EXCISIONAL BIOPSY: - ONE LYMPH NODE, NEGATIVE FOR METASTATIC CARCINOMA ON TOUCH PREPARATION (TPB1)C. LYMPH NODE, SENTINEL #2, RIGHT AXILLA, EXCISIONAL BIOPSY: - ONE LYMPH NODE, NEGATIVE FOR METASTATIC CARCINOMA ON TOUCH PREPARATION (TPC1)D. LYMPH NODE, SENTINEL #3, RIGHT AXILLA, EXCISIONAL BIOPSY: - TWO LYMPH NODES, NEGATIVE FOR METASTATIC CARCINOMA ON TOUCH PREPARATION (TPD1, TPD2)E. LYMPH NODE, SENTINEL #4, RIGHT AXILLA, EXCISIONAL BIOPSY: - ONE LYMPH NODE, NEGATIVE FOR METASTATIC CARCINOMA ON TOUCH PREPARATION (TPE1)Not e: The above findings are preliminary based on limited evaluation at the time of surgery. Please refer to the final report.All histologic sections have been microscopically examined. The pertinent microscopic examination findings, along with the gross examination findings, have been incorporated into the diagnosis rendered above.The following special studies were performed on this case and the interpretation is incorporated in the diagnostic report above:- AE1/AE3: Negative for metastatic carcinoma in 5 sentinel lymph nodes (parts B-E)- CD31 & D2-40: No convincing evidence for lymph-vascular invasion, the area suspicious on H&E is determined to be retraction artifact- E-cadherin: Non-immunoreactive in the lobular neoplasiaThe immunohistochemistry test was developed and its performance characteristics determined by [facility], Pathology Laboratory. It has not been cleared or approved by the [place]. Food and Drug Administration. The FDA has determined that such clearanceor approval is not necessary. The test is used for clinical purposes. It should not be regarded as investigational or for research. This laboratory is certified under the Clinical Laboratory Improvement Amendments of 1988 (CLIA-88) as qualified to perform high complexity clinical laboratory testing.Control material (internal or externally reviewed) examined and shown to be satisfactory for patient interpretation.BASIC METABOLIC [id number] 12:14:00 Test Item Value Reference Range Interpretation Comments SODIUM (BEAKER) 141 meq/L 135-148 (test code = 381) POTASSIUM (BEAKER) 4.5 meq/L 3.5-5.5 (test code = 379) CHLORIDE (BEAKER) 105 meq/L 98-106 (test code = 382) CO2 (BEAKER) (test 26 meq/L 20-31 code = 355) BLOOD UREA NITROGEN 10 mg/dL 10-26 (BEAKER) (test code = 354) CREATININE (BEAKER) 0.78 mg/dL 0.50-1.20 (test code = 358) GLUCOSE RANDOM 101 mg/dL 70-110 (BEAKER) (test code = 652) CALCIUM (BEAKER) 9.6 mg/dL 8.5-10.5 (test code = 697) EGFR (BEAKER) (test 75 mL/min/1.73 ESTIMA ANDREA GFR IS code = 1092) sq m NOT ACCURATE CREATININE CLEARANCE IN PREDICTING GLOMERULAR FILTRATION RATE . ESTIMATED GFR I S NOT APPLICABLE FOR DIALYSIS PATIEN TS. CBC W/PLT COUNT & AUTO [id number] 12:00:00 Test Item Value Reference Range Interpretation Comments WHITE BLOOD CELL COUNT (BEAKER) 6.6 K/ L 4.0-10.0 (test code = 775) RED BLOOD CELL COUNT (BEAKER) 4.26 M/ L 4.00-5.00 (test code = 761) HEMOGLOBIN (BEAKER) (test code = 12.6 GM/DL 12.0-15.0 410) HEMATOCRIT (BEAKER) (test code = 38.8 % 36.0-45.0 411) MEAN CORPUSCULAR VOLUME (BEAKER) 91.1 fL 82.0-99.0 (test code = 753) MEAN CORPUSCULAR HEMOGLOBIN 29.7 pg 27.0-33.0 (BEAKER) (test code = 751) MEAN CORPUSCULAR HEMOGLOBIN CONC 32.5 GM/DL 32.0-36.0 (BEAKER) (test code = 752) RED CELL DISTRIBUTION WIDTH 13.3 % 12.0-15.0 (BEAKER) (test code = 412) PLATELET COUNT (BEAKER) (test 273 K/CU MM 150-430 code = 756) MEAN PLATELET VOLUME (BEAKER) 7.8 fL 6.5-10.5 (test code = 754) NUCLEATED RED BLOOD CELLS 0 /100 WBC 0-0 (BEAKER) (test code = 413) NEUTROPHILS RELATIVE PERCENT 45 % (BEAKER) (test code = 429) LYMPHOCYTES RELATIVE PERCENT 46 % (BEAKER) (test code = 430) MONOCYTES RELATIVE PERCENT 8 % (BEAKER) (test code = 431) EOSINOPHILS RELATIVE PERCENT 1 % (BEAKER) (test code = 432) BASOPHILS RELATIVE PERCENT 1 % (BEAKER) (test code = 437) NEUTROPHILS ABSOLUTE COUNT 2.90 K/ L 1.80-8.00 (BEAKER) (test code = 670) LYMPHOCYTES ABSOLUTE COUNT 3.00 K/ L 1.48-4.50 (BEAKER) (test code = 414) MONOCYTES ABSOLUTE COUNT (BEAKER) 0.50 K/ L 0.00-1.30 (test code = 415) EOSINOPHILS ABSOLUTE COUNT 0.10 K/ L 0.00-0.50 (BEAKER) (test code = 416) BASOPHILS ABSOLUTE COUNT (BEAKER) 0.00 K/ L 0.00-0.20 (test code = 417)
[2020-11-16] MEDS ORDERED: ACETAMINOPHEN 500 MG TAB ONE (22:11)
--- NOTE | 2020-11-16 22:44 | ER ---
Nurse's Notes [facility] Name: Sadie Blackwood Age: 65 yrs Sex: Female : 1955 Arrival Date: 11/16/2020 Time: 20:54 Bed 6 Private MD: Diagnosis: Concussion;Low back pain-from fall Presentation: 11/16 21:20 Chief complaint: Chief complaint: Spouse and/or significant other states: [place] the beach tonight [place] a dog stumbled on her and she fell backwards on the sand, denies LOC but has no recall of the incident after the fall. 21:22 Care prior to arrival: None. Mechanism of Injury: Fall from standing position. Trauma rv event details: Injury occurred in the [facility], Injury occurred: in a recreational area. Injury occurred at: 19:30. 21:22 Acuity: TAO 2 rv 21:22 Method Of Arrival: Wheelchair rv 21:30 Coronavirus screen: Client denies travel out of the [place] in the last 14 days. Ebola rv Screen: No symptoms or risks identified at this time. Initial Sepsis Screen: Does the patient meet any 2 criteria? No. Patient's initial sepsis screen is negative. Does the patient have a suspected source of infection? No. Patient's initial sepsis screen is negative. Risk Assessment: Do you want to hurt yourself or someone else? Patient reports no desire to harm self or others. Onset of symptoms was November 16, 2020 at 19:30. Trauma Activation: Alert Physician: ED Physician; Name: ; Notified At: ; Arrived At: Physician: General Surgeon; Name: ; Notified At: ; Arrived At: Physician: Radiology; Name: ; Notified At: ; Arrived At: Physician: Respiratory; Name: ; Notified At: ; Arrived At: Physician: Lab; Name: ; Notified At: ; Arrived At: Historical: - Allergies: 21:28 Codeine; rv - Home Meds: 21:28 Lexapro 10 mg Oral tab [Active]; rosuvastatin 10 mg oral tab [Active]; Synthroid 100 rv mcg Oral tab [Active]; - PMHx: 21:28 Hypothyroidism; Hyperlipidemia; Anxiety; rv - PSHx: 21:28 Mastectomy; rv - Immunization history: Last tetanus immunization: unknown. - Social history:: Smoking status: Patient denies any tobacco usage or history of. Screenin:29 Abuse screen: Denies threats or abuse. Denies injuries from another. Nutritional rv screening: No deficits noted. Tuberculosis screening: No symptoms or risk factors identified. Fall risk At risk due to prior history of falls. 21:35 Fall Risk IV access (20 points). rv Primary Survey: 21:28 NO uncontrolled hemorrhage observed. A: The patient is alert. Airway: patent. rv Breathing/Chest: Respiratory pattern: regular, Respiratory effort: spontaneous, unlabored, Breath sounds: clear. Circulation: Skin color: pink. Disability Alert. Exposure/Environment: All clothing and personal items were removed. Forensic evidence collection is not deemed to be indicated at this time. Items placed in patient belonging bag. There is no evidence of uncontrolled external bleeding. No obvious injuries are noted at this time. A warming method has been applied: A warm blanket has been provided to the patient. 22:45 Reassessment Airway Airway Patent Breathing/Chest Respiratory pattern Regular mg2 Respiratory effort Spontaneous Breath sounds Clear Circulation Color [place] Disability Alert. Secondary Survey: 21:29 HEENT: No deficits noted. Gastrointestinal: No deficits noted. : No deficits noted. rv Musculoskeletal: Circulation, motion, and sensation intact. Capillary refill < 3 seconds. Assessment: 21:25 General: Appears in no apparent distress. comfortable, Behavior is calm, cooperative. rv Pain: Complains of pain in head, tailbone. Neuro: Level of Consciousness is awake, confused, Oriented to person, place, time. EENT: No deficits noted. Cardiovascular: No deficits noted. Respiratory: Airway is patent Respiratory effort is even, unlabored, Respiratory pattern is regular, symmetrical. GI: No signs and/or symptoms were reported involving the gastrointestinal system. : No signs and/or symptoms were reported regarding the genitourinary system. Derm: Skin is intact, is healthy with good turgor, Skin is pink, warm \T\ dry. normal. Musculoskeletal: Circulation, motion, and sensation intact. Capillary refill < 3 seconds, Reports pain in back of the head and tailbone. 21:35 Reassessment: patient sent to xray. rv Vital Signs: 21:30 BP 143 / 76; Pulse 73; Resp 18; Temp 98.9; Pulse Ox 100% on R/A; Weight 62.6 kg; Height rv 5 ft. 3 in. (160.02 cm); Pain 3/10; 21:30 Body Mass Index 24.45 (62.60 kg, 160.02 cm) rv Kennard Coma Score: 21:30 Eye Response: spontaneous(4). Verbal Response: oriented(5). Motor Response: obeys rv commands(6). Total: 15. Trauma Score (Adult): 21:30 Eye Response: spontaneous(1); Verbal Response: confused(1); Motor Response: obeys rv commands(2); Systolic BP: > 89 mm Hg(4); Respiratory Rate: 10 to 29 per min(4); Ginna Score: 14; Trauma Score: 12 ED Course: 20:54 Patient arrived in ED. cl3 21:18 Huseyin Chamberlain PA is PHCP. cp 21:18 Javier Crockett MD is Attending Physician. cp 21:19 [place] RN is Primary Nurse. rv 21:25 Triage completed. rv 21:29 Patient has correct armband on for positive identification. rv 21:35 Arm band placed on. rv 21:35 Patient maintains SpO2 saturation greater than 95% on room air. rv 21:35 Thermoregulation: warm blanket given to patient. rv 21:35 No provider procedures requiring assistance completed. Patient did not have IV access rv during this emergency room visit. 21:38 XRAY Lumbar Spine (3 Views) In Process Unspecified. EDMS 21:59 CT Head C Spine In Process Unspecified. EDMS Administered Medications: 21:57 Drug: Tylenol 1000 mg Route: PO; rv Intake: 21:30 PO: 0ml; Total: 0ml. rv Outcome: 22:44 Discharge ordered by MD. cp 22:50 Discharged to home via wheelchair, with family. mg2 22:50 Condition: stable 22:50 Discharge instructions given to patient, family, Instructed on discharge instructions, follow up and referral plans. Demonstrated understanding of instructions, follow-up care. 22:52 Patient's length of stay was not longer than 2 hours. mg2 22:52 Patient left the ED. mg2 Signatures: Dispatcher [employer] EDMS Huseyin Chamberlain PA PA cp [place], Michele, RN RN mg2 [place] RN RN rv Marquise Rodrigues cl3 Corrections: (The following items were deleted from the chart) 21:25 21:20 Chief complaint: rv rv
--- NOTE | 2020-11-16 22:44 | EDPHYS ---
Physician Documentation [facility] Name: Sadie Blackwood Age: 65 yrs Sex: Female : 1955 Arrival Date: 11/16/2020 Time: 20:54 Bed 6 Private MD: ED Physician Javier Crockett HPI: 11/16 21:35 This 65 yrs old Female presents to ER via Wheelchair with complaints of Fall cp Injury, Head Injury-Adult, Memory Loss. 21:35 Details of fall: The patient fell from an upright position, while standing, and struck cp sand on beach. Onset: The symptoms/episode began/occurred just prior to arrival. Associated injuries: The patient sustained injury to the head, pain, injury to the low back, pain. Patient reports while walking on beach today, she was tripped by dog causing her to fall backward and strike back of head on sand. Patient does not believe she lost consciousness but unable to recall specific events leading up to fall. Patient also c/o pain lower back and coccyx area. Historical: - Allergies: 21:28 Codeine; rv - Home Meds: 21:28 Lexapro 10 mg Oral tab [Active]; rosuvastatin 10 mg oral tab [Active]; Synthroid 100 rv mcg Oral tab [Active]; - PMHx: 21:28 Hypothyroidism; Hyperlipidemia; Anxiety; rv - PSHx: 21:28 Mastectomy; rv - Immunization history: Last tetanus immunization: unknown. - Social history:: Smoking status: Patient denies any tobacco usage or history of. ROS: 21:40 Constitutional: Negative for body aches, chills, fever, poor PO intake. cp 21:40 Eyes: Negative for injury, pain, redness, and discharge. cp 21:40 Neck: Positive for tenderness. 21:40 Cardiovascular: Negative for chest pain. 21:40 Respiratory: Negative for cough, shortness of breath, wheezing. 21:40 Abdomen/GI: Negative for abdominal pain, vomiting, diarrhea, constipation. 21:40 Back: Positive for pain at rest, pain with movement, of the lumbar area. 21:40 Neuro: Positive for headache, Negative for altered mental status, weakness. 21:40 All other systems are negative. Exam: 21:45 Constitutional: The patient appears in no acute distress, alert, awake, cp non-diaphoretic, non-toxic, well developed, well nourished. 21:45 Head/face: Noted is tenderness, that is mild, of the left side of the back of head, cp left occipital area, right side of the back of head and right occipital area. 21:45 Eyes: Periorbital structures: appear normal, Pupils: equal, round, and reactive to light and accomodation, Extraocular movements: intact throughout, Conjunctiva: normal, no exudate, no injection, Lids and lashes: appear normal, bilaterally. 21:45 ENT: External ear(s): are unremarkable, Ear canal(s): are normal, clear, TM's: dullness, bilaterally, Nose: is normal, Posterior pharynx: Airway: no evidence of obstruction, patent. 21:45 Neck: C-spine: C-collar placed in ED, vertebral tenderness, that is mild, appreciated at C5 and C6, crepitus, is not appreciated, ROM/movement: Meningeal signs: are not present, nuchal rigidity, is not appreciated. 21:45 Chest/axilla: Inspection: normal, Palpation: is normal, no crepitus, no tenderness. 21:45 Cardiovascular: Rate: normal, Rhythm: regular. 21:45 Respiratory: the patient does not display signs of respiratory distress, Respirations: normal, no use of accessory muscles, no retractions, labored breathing, is not present, Breath sounds: are clear throughout, no decreased breath sounds. 21:45 Abdomen/GI: Inspection: abdomen appears normal, Palpation: abdomen is soft and non-tender, in all quadrants. 21:45 Back: pain, that is mild, of the lumbar area, ROM is normal. 21:45 Musculoskeletal/extremity: Exam is negative for decreased range of motion, deformity, injury. 21:45 Neuro: Orientation: to person, place \T\ time. Mentation: able to follow commands, Motor: moves all fours, strength is normal. Vital Signs: 21:30 BP 143 / 76; Pulse 73; Resp 18; Temp 98.9; Pulse Ox 100% on R/A; Weight 62.6 kg; Height rv 5 ft. 3 in. (160.02 cm); Pain 3/10; 21:30 Body Mass Index 24.45 (62.60 kg, 160.02 cm) rv Ginna Coma Score: 21:30 Eye Response: spontaneous(4). Verbal Response: oriented(5). Motor Response: obeys rv commands(6). Total: 15. Trauma Score (Adult): 21:30 Eye Response: spontaneous(1); Verbal Response: confused(1); Motor Response: obeys rv commands(2); Systolic BP: > 89 mm Hg(4); Respiratory Rate: 10 to 29 per min(4); Ginna Score: 14; Trauma Score: 12 MDM: 21:20 Patient medically screened. cp 21:45 Differential diagnosis: closed head injury, contusion, fracture, multiple trauma. cp 22:40 Data reviewed: vital signs, nurses notes, radiologic studies, CT scan, plain films. cp 22:40 Test interpretation: by ED physician or midlevel provider: xrays of lumbar spine cp negative for fracture. Counseling: I had a detailed discussion with the patient and/or guardian regarding: the historical points, exam findings, and any diagnostic results supporting the discharge/admit diagnosis, radiology results, to return to the emergency department if symptoms worsen or persist or if there are any questions or concerns that arise at home. Response to treatment: the patient's symptoms have mildly improved after treatment, and as a result, I will discharge patient. Special discussion: Based on the patient's history, exam and DX evaluation, there is no indication for emergent intervention or inpatient TX. It is understood by the patient/guardian that if the SXs persist or worsen they need to return immediately for re-evaluation. 11/16 21:27 Order name: CT Head C Spine cp 11/16 21:27 Order name: XRAY Lumbar Spine (3 Views) cp Administered Medications: 21:57 Drug: Tylenol 1000 mg Route: PO; rv Disposition: 23:00 Chart complete. cp 11/17 05:35 Co-signature as Attending Physician, Javier Crockett MD. [email or web address] Disposition: 11/16/20 22:44 Discharged to Home. Impression: Concussion, Low back pain - from fall. - Condition is Stable. - Discharge Instructions: Back Pain, Adult, Concussion, Adult, Head Injury, Adult, Back Exercises. - Medication Reconciliation Form, Thank You Letter, Antibiotic Education, Prescription Opioid Use form. - Follow up: Private Physician; When: 2 - 3 days; Reason: Recheck today's complaints. - Problem is new. - Symptoms have improved. Signatures: Dispatcher [employer] EDMS Huseyin Chamberlain PA PA cp Sumit Ann RN RN mg2 [place] RN RN Javier Crockett MD MD [email or web address] Corrections: (The following items were deleted from the chart) 11/16 22:52 22:44 11/16/2020 22:44 Discharged to Home. Impression: Concussion; Low back pain - from mg2 fall. Condition is Stable. Forms are Medication Reconciliation Form, Thank You Letter, Antibiotic Education, Prescription Opioid Use. Follow up: Private Physician; When: 2 - 3 days; Reason: Recheck today's complaints. Problem is new. Symptoms have improved. cp 11/17 20:35 11/16 21:30 Differential diagnosis: closed head injury, contusion, fracture, multiple cp trauma, cp
--- NOTE | 2020-11-17 11:26 | RAD REPORT ---
EXAM DESCRIPTION: RAD - Lumbar Spine 3 Views - 11/16/2020 9:42 pm CLINICAL HISTORY: fall;Pain COMPARISON: No comparisons FINDINGS: A three-view lumbar spine examination was performed. Lumbar bodies are normal in height and AP alignment. Right convex scoliotic curvature is present in t he spine. No fracture or acute bony process seen. Endplate spurring present throughout the lumbar spi ne. Disc space narrowing is present at L5-S1 as well is along the left lateral margin of L2-3. Facet joint degenerative changes are present in the mid and lower lumbar spine. No pars defects identified. IMPRESSION: No acute compression fracture. Degenerative lumbar spine changes as detailed.
--- NOTE | 2020-11-19 10:24 | RAD REPORT ---
EXAM DESCRIPTION: CT - [facility] - 11/17/2020 6:15 am CLINICAL HISTORY: 65-year-old female with pain status post fall. COMPARISON: None. TECHNIQUE: CT brain without contrast. This exam was performed according to our departmental dose opt imization program which includes use of automated exposure control, adjustment of the mA and/or kV ac cording to patient size and/or use of iterative reconstruction technique. FINDINGS: The ventricles, sulci, and cisterns are symmetric and unremarkable. The cardoso-white matte r differentiation is preserved. There is no mass effect, midline shift, intra- or extra-axial fluid collection/acute hemorrhage. The osseous structures are unremarkable. The paranasal sinuses and mastoid air cells are clear. IMPRESSION: 1. No acute intracranial abnormalities. TECHNIQUE: Cervical spine CT was performed without contrast. Multiplanar reformatted images were pro vided. This exam was performed according to our departmental dose optimization program which includes use of automated exposure control, adjustment of the mA and/or kV according to patient size and/or u se of iterative reconstruction technique. COMPARISON: None. FINDINGS: There is normal alignment of the cervical spine without fracture or subluxation. The facet s are normal in alignment bilaterally. The posterior elements including the spinous processes are int act. Straightening of the cervical spine which may be secondary to positioning for the examination. Morphology and attenuation of the vertebral bodies and intervertebral disk spaces is compatible with multilevel degenerative change. Mild neuroforaminal narrowing at C3-4 LEFT greater than RIGHT secondary to uncovertebral joint and fa cet hypertrophy. Mild diffuse disk bulge of C3-4 extends into the central spinal canal measuring 4 mm with mild effacement of the ventral thecal sac. Mild diffuse disk bulge of C5-6 measures 3 mm with m ild effacement of the ventral thecal sac. The pre-and paravertebral soft tissues are within normal limits. IMPRESSION: 1. Straightening of the cervical spine which may be secondary to positioning for the exa mination versus spasm. 2. No fracture or acute subluxation. Electronically signed by: Jonna Seymour MD 11/16/2020 10:19 PM CDT Due to temporary technical issues with the PACS/Fluency reporting system, reports are being signed by the in house radiologist without review as a courtesy to ensure prompt reporting. The interpreting r adiologist is fully responsible for the content of the report.
== END 2020-11-16 22:52 | disposition home or self-care (01) ==
LOC: ER 20:51 → EDBD 20:51 → ER 22:52
DX: S06.0X0A Concussion without loss of consciousness, initial encounter (principal); M54.5 Low back pain; W18.09XA Striking against other object with subsequent fall, initial encounter; Y93.01 Activity, walking, marching and hiking; Y92.832 Beach as the place of occurrence of the external cause; Z88.5 Allergy status to narcotic agent; E03.9 Hypothyroidism, unspecified; F41.9 Anxiety disorder, unspecified; E78.5 Hyperlipidemia, unspecified
CPT/HCPCS: 70450; 72100; 72125; 99284; G0390